=== PATIENT | female | born 1980 | race Caucasian/White ===

== ENCOUNTER → 2018-08-25 | Outpatient (CLI) | payer BC ==
[~2018-08-25] MED LIST: ASPIR-LOW81 MG PO; DHA; FISH OIL500 MG PO; NORCO 325 MG-51 TAB PO; PRENATAL VITAMI1 TA5 PO; PRILOSEC10 MG PO; ZANTAC 150MG T150 MG PO
== END ==
LOC: MC.RAD 09:28
DX: Z12.31 Encounter for screening mammogram for malignant neoplasm of breast (principal); E03.9 Hypothyroidism, unspecified; G43.821 Menstrual migraine, not intractable, with status migrainosus; E31.9 Polyglandular dysfunction, unspecified; Z80.3 Family history of malignant neoplasm of breast

== ENCOUNTER → 2020-03-07 | Outpatient (CLI) | payer OTHER | LOC: MC.RAD 13:00 | DX: N63.11 Unspecified lump in the right breast, upper outer quadrant (principal) ==

== ENCOUNTER → 2021-05-17 | Outpatient (CLI) | payer OTHER | LOC: MC.RAD 13:00 | DX: Z12.31 Encounter for screening mammogram for malignant neoplasm of breast (principal) ==

== ENCOUNTER → 2021-05-28 | Outpatient (CLI) | payer OTHER | LOC: MC.RAD 07:00 | DX: N60.01 Solitary cyst of right breast (principal); N60.11 Diffuse cystic mastopathy of right breast ==

== ENCOUNTER → 2021-06-12 | Outpatient (CLI) | payer OTHER | LOC: MC.RAD 09:57 | DX: N60.01 Solitary cyst of right breast (principal) ==

== ENCOUNTER → 2022-07-18 | Outpatient (CLI) | payer OTHER | LOC: MC.RAD 13:00 | DX: Z12.31 Encounter for screening mammogram for malignant neoplasm of breast (principal); N60.01 Solitary cyst of right breast ==

== ENCOUNTER → 2023-07-22 | Outpatient (CLI) | payer OTHER | LOC: MC.RAD 12:51 | DX: Z12.31 Encounter for screening mammogram for malignant neoplasm of breast (principal) ==